=== PATIENT | male | born 1965 | race Caucasian/White ===

== ENCOUNTER → 2020-11-25 17:44 | Outpatient (CLI) | payer BC, SELFPAY | PROVIDERS: Visit Provider Internal Medicine Gastroenterology | DX: Z20.822 Contact with and (suspected) exposure to COVID-19 (principal) | CPT/HCPCS: U0003 ==

== ENCOUNTER 2020-11-27 11:35 | Day surgery (SDC) | payer BC, SELFPAY ==
[2020-11-25 09:12] VITALS: BMI 30.1
[2020-11-27] VITALS (8 sets, daily range): BP systolic 113–132; BP diastolic 61–79; PULSE 51–57; RESP 16–18; TEMP 36.1–36.4; O2SAT 97–100
--- NOTE | 2020-11-27 13:15 | HMH.ANESCL ---
[facility] Anesthesia Checklist - Patient Identification Patient Identification: Arm Band - Structural Data Admitted From: Home Planned Operative Procedure/s: Colonoscopy Consent for Planned Operative Procedure(s) Verified: Yes - NPO Status Verified Time NPO: 00:00 - Airway Assessment C-Spine Mobility Assessed: Yes TMJ Mobility Assessed: Yes Dentition: Good Dentition - Neurological Assessment Level of Consciousness: Awake Hx Seizures: No Numbness or tingling in extremities: No - Anesthesia Plan Anesthesia Risk discussed: Yes Anesthesia Plan: Verified ASA Class: II Anesthesia Type: MAC [facility] History I have reviewed the patient's past medical history: Yes Medical History: Denies:: Cancer, Diabetes Mellitus Type 1, Diabetes Mellitus Type 2, Internal Pacemaker, MRSA, Seizures *Have you ever received a pneumonia vaccine?: No *Have you received a flu vaccine this season?: No Anesthesia experience/problems:: None Other Surgeries: No: Pacemaker Amputation: No Fractures: No - *Social History Last grade of school completed: Advanced degree Smoking Status: Current every day smoker Tobacco Type: cigarettes # Packs/Day (cigarettes): 1 Alcohol Intake: current Alcohol Intake Frequency:: a few times a week Substance Use Type: denies use *Occupational Status:: employed Housing: house Household Members: spouse *Travel in the last 8 weeks: None Family Hx:: Unable to obtain
--- NOTE | 2020-11-27 13:52 | HMH.PROC ---
[facility] Procedure Note Procedure Note:: Colonoscopy Procedure Report: Colonoscopy with cold snare polypectomy Endoscopist: Jeremy Alcaraz II, MD Referring physician: Sachin Mascorro MD Date of Procedure: November 27, 2020 Equipment: Olympus 190 variable stiffness pediatric colonoscope Sedation: MAC sedation Indication: Mr. Camargo is a 54-year-old gentleman who is here for initial screening colonoscopy. He reports no abdominal pain, weight loss, change in his bowel habits or rectal bleeding. He reports no family history of colon cancer. His sister had thyroid cancer. His currently has stage IV colon cancer. Procedure: Prior to the procedure, a history and physical exam was performed, and patient's medications and allergies were reviewed. The risks, benefits and alternatives of the sedation and procedure were discussed with the patient. All questions were answered and informed consent was obtained. The patient was brought to the procedure room. Patient identification and proposed procedure were verified by the physician and the nurse. The patient was placed in a left lateral decubitus position and the scope was passed under direct vision. Throughout the procedure, the patient's blood pressure, pulse, and oxygen saturations were monitored continuously. The colonoscopy was accomplished without difficulty. The patient tolerated the procedure well. Findings: On digital rectal examination there was normal rectal tone. There were no external hemorrhoids. The prostate was 2+, smooth, soft, symmetric without nodules. The colonoscope was introduced through the anal canal to the rectum and advanced to the cecum. The ileocecal valve and appendiceal orifice were identified. The scope was advanced a short distance into the ileum which appeared grossly normal. The scope was then withdrawn into the colon. There were 3 colon polyps (transverse x1 (18 to 19 mm), sigmoid x1 (6 mm) and rectum x1 (5 mm)) which were all 3 removed via cold snare polypectomy. The remainder of the colonic mucosa was normal. Upon retroflexion within the rectum there were grade 1-2 internal hemorrhoids.The preparation was excellent throughout with [place] Preparation Score of 9. The cecal time was 15 minutes. Impression: 1. Large transverse colon polyp (18 to 19 mm) 2. 2 additional diminutive colon polyps (5 and 6 mm) 3. Grade 1-2 internal hemorrhoids Plan: The larger polyp is an advanced adenoma. I will discuss the findings (adenomatous polyps) and implication with patient and family. I would recommend surveillance colonoscopy again in 1 to 3 years based upon the adenomatous pathology and polyp size. I would encourage bulking fiber supplementation on a maintenance basis.
== END 2020-11-27 14:55 | disposition home or self-care (01) ==
LOC: OUTP 11:39
PROVIDERS: PCP Family Medicine; Visit Provider Internal Medicine Gastroenterology
PROC: 0DJD8ZZ Inspection of Lower Intestinal Tract, Via Natural or Artificial Opening Endoscopic (ICD-10-PCS; CPT 45378; principal; 2020-11-27 12:30)
DX: Z12.11 Encounter for screening for malignant neoplasm of colon (principal); K63.5 Polyp of colon; K64.0 First degree hemorrhoids; Z80.8 Family history of malignant neoplasm of other organs or systems; Z72.0 Tobacco use; F41.9 Anxiety disorder, unspecified; I10 Essential (primary) hypertension; Z79.899 Other long term (current) drug therapy
CPT/HCPCS: 45385

== ENCOUNTER → 2021-01-18 11:46 | Outpatient (CLI) | payer BC, SELFPAY | PROVIDERS: PCP Family Medicine; Visit Provider Nurse Practitioner | DX: Z20.822 Contact with and (suspected) exposure to COVID-19 (principal) | CPT/HCPCS: C9803; U0003; U0005 ==

== ENCOUNTER → 2021-03-16 13:19 | Outpatient (POV) | payer BC, SELFPAY | PROVIDERS: Visit Provider Dermatology | DX: Z00.00 Encounter for general adult medical examination without abnormal findings (principal) ==

== ENCOUNTER → 2021-05-11 13:12 | Outpatient (CLI) | payer BC, SELFPAY | PROVIDERS: PCP Family Medicine; Visit Provider Nurse Practitioner | DX: Z20.822 Contact with and (suspected) exposure to COVID-19 (principal) | CPT/HCPCS: C9803; U0003; U0005 ==

== ENCOUNTER → 2021-06-01 09:08 | Outpatient (CLI) | payer BC, SELFPAY ==
[2021-06-02 06:15] LABS: Covid-19 Nasal PCR Sendout Lex NOT DETECTED
== END ==
PROVIDERS: PCP Family Medicine; Visit Provider Nurse Practitioner
DX: Z20.822 Contact with and (suspected) exposure to COVID-19 (principal)
CPT/HCPCS: C9803; U0004; U0005

== ENCOUNTER → 2021-11-09 13:43 | Outpatient (CLI) | payer BC, SELFPAY ==
[2021-11-09 14:10] LABS: Basophils # 0.1 K/mm3 (0-0.2); Basophils % 1.1 % (0.1-2.0); Eosinophils # 0.4 K/mm3 (0.0-0.4); Hematocrit 52.2 % (42.0-52.0); Lymphocytes # 2.4 K/mm3 (0.7-4.5); Mean Corpuscular HGB Conc 32.5 g/dL (31.8-35.4); Mean Corpuscular Hemoglobin 30.6 pg (27.0-31.2); Mean Corpuscular Volume 94.2 fl (80-94); Mean Platelet Volume 7.6 fl (7.4-10.4); Monocytes # 0.5 K/mm3 (0.1-1.0); Monocytes % 5.2 % (1.7-9.3); Neutrophils # 6.3 K/mm3 (1.8-7.8); Neutrophils % 64.7 % (37.0-80.0); Platelet Count 303 K/mm3 (142-424); Red Blood Count 5.54 M/mm3 (4.60-6.20); Red Cell Distribution Width 13.9 % (11.5-17.5); White Blood Count 9.7 K/mm3 (4.8-10.8)
[2021-11-09 14:30] LABS: Alanine Aminotransferase 28 U/L (12-78); Albumin Level 4.3 g/dl (3.5-5.0); Albumin/Globulin Ratio 1.5 (1.1-1.8); Alkaline Phosphatase 74 U/L (38-126); Anion Gap 10.2 mEq/L (5-15); Aspartate Amino Transferase 30 U/L (17-59); Bilirubin,Total 0.2 mg/dl (0.2-1.3); Blood Urea Nitrogen 15 mg/dl (9-20); Calcium 9.6 mg/dl (8.4-10.2); Carbon Dioxide 30 mmol/L (22.0-30.0); Chloride 105 mmol/L (98-107); Chol/HDL Ratio 3.8 (1-3.5); Cholesterol 193 mg/dl (140-200); Estimated Glomerular Filt Rate 70 ml/min (>60); GFR (African American) 85 ML/MIN (>60); Globulin 2.9 g/dL (1.3-3.2); Glucose 109 mg/dl (74-100); HDL Cholesterol 51 mg/dl (40-60); Potassium 5.2 mmoL/L (3.5-5.1); Sodium 140 mmol/L (136-145); Total Protein,Serum 7.2 g/dl (6.3-8.2); Triglycerides 121 mg/dl (30-150); VLDL Cholesterol 24 mg/dL (0-40)
[2021-11-09 14:42] LABS: Direct LDL Cholesterol 117.61 mg/dL (100-129); Troponin I < 0.01 ng/ml (0.00-0.034)
[2021-11-09 15:00] LABS: Prostate Specific Ag Screen 2.1 ng/ml (0.0-4.0); Thyroid Stimulating Hormone 1.79 uIU/mL (0.465-4.68)
== END ==
PROVIDERS: PCP Nurse Practitioner Family; Visit Provider Nurse Practitioner Family
DX: I10 Essential (primary) hypertension (principal); R61 Generalized hyperhidrosis; R53.83 Other fatigue; Z12.5 Encounter for screening for malignant neoplasm of prostate
CPT/HCPCS: 36415; 80053; 80061; 84443; 84484; 85025; G0103

== ENCOUNTER → 2022-05-16 09:06 | Outpatient (CLI) | payer BC, SELFPAY ==
--- NOTE | 2022-05-16 09:15 | XR_ITS ---
FINAL REPORT CLINICAL HISTORY: right medial knee pain FINDINGS: AP and lateral views of the right knee were obtained. There is no prior exam for comparison. There is no acute fracture or dislocation. The joint space is preserved. Soft tissues are normal. IMPRESSION: No acute osseous abnormality of the right knee. Reviewed, Interpreted and Dictated by Pooja Ulrich MD Transcribed by Glenys Hodgson Authenticated and [facility]
== END ==
PROVIDERS: PCP Family Medicine; Visit Provider Nurse Practitioner Family
DX: M25.561 Pain in right knee (principal)
CPT/HCPCS: 73560

== ENCOUNTER → 2022-05-27 16:32 | Outpatient (CLI) | payer BC, SELFPAY ==
--- NOTE | 2022-05-27 16:36 | MR_ITS ---
PROCEDURE INFORMATION: Exam: MR Right Lower Extremity Joint Without Contrast, Knee Exam date and time: 05/27/2022 4:37 PM Age: 56 years old Clinical indication: Pain; Knee; Right; Additional info: Acute pain in right knee TECHNIQUE: Imaging protocol: Magnetic resonance imaging of the Right lower extremity joint without contrast. Exam focused on the knee. COMPARISON: CR XR KNEE RT 2V 05/16/2022 9:23 AM FINDINGS: Bones and cartilage: Moderate diffuse medial compartment chondromalacia. Focal high-grade chondral defects central lateral femoral condyle with otherwise mild diffuse lateral compartment chondromalacia. Multifocal high-grade chondral fissures are seen in the lateral patellofemoral compartment. Patella is minimally subluxed laterally with lateral tilt. Joint spaces: Moderate-size knee joint effusion with synovitis. Medial meniscus: Complex tear in the body/posterior horn of the medial meniscus involving the free edge with mild meniscal extrusion. Lateral meniscus: Lateral meniscus has degenerative free edge fraying in the body with mild extrusion. Anterior cruciate ligament: Unremarkable. No tear. Posterior cruciate ligament: Unremarkable. No tear. Medial capsule and supporting structures: Unremarkable. No tear. Lateral capsule and supporting structures: Unremarkable. No tear. Extensor mechanism of knee: Patellar tendinosis with distal tendinous laxity. Muscles: Unremarkable. Soft tissues: Unremarkable. IMPRESSION: 1. Complex tearing of the body/posterior horn of the medial meniscus free edge with mild extrusion. 2. Lateral meniscus degenerative free edge fraying in the body with mild extrusion. 3. Tricompartmental moderate osteoarthritis of the right knee greatest in the patellofemoral compartment. 4. Moderate-sized knee joint effusion with synovitis. 5. Patellar tendinosis.
== END ==
PROVIDERS: PCP Family Medicine; Visit Provider Nurse Practitioner Family
DX: M25.561 Pain in right knee (principal)
CPT/HCPCS: 73721

== ENCOUNTER 2023-01-11 10:31 | Day surgery (SDC) | payer BC, SELFPAY ==
[2022-12-12 10:01] VITALS: BMI 28.5
[2023-01-11 11:02] VITALS: BP 127/84; PULSE 68; RESP 16; TEMP 36.6; O2SAT 97
--- NOTE | 2023-01-11 11:26 | P.PNANES_ITS ---
[facility] Disclaimer: The information contained in this section may have been updated after the patient was seen, as this information can be updated by other users. Medical History Dyspnea on exertion History of asthma HTN (hypertension) Hyperlipidemia Sinus bradycardia Smoking greater than 30 pack years Surgical History History of colonoscopy History of removal of cyst Family History Other Black lung disease Diabetes Family history of dementia Family history of lymphoma Hypertension Social History Smoking Status: Current every day smoker tobacco type: cigarettes packs per day: 1 pack-years: 30 alcohol intake: current substance use type: denies use current occupational status: employed Travel in the last 8 weeks: None household members: family housing: house lives independently: Yes marital status: single education level: college service: No retirement: No 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 current occupational exposures/hazards: No caffeine: Yes special jesenia needs: No agree to transfusion: No do you feel safe at home: Yes victim of physical abuse: No victim of emotional abuse: No victim of sexual abuse: No would you like helpful sources: No [facility] Anesthesia Checklist Patient Identification Patient Identification: Arm Band Structural Data Admitted From: Home Planned Operative Procedure/s: Colonoscopy Consent for Planned Operative Procedure(s) Verified: Yes Verified Documents: Surgical Consent and History and Physical NPO Status Verified Time NPO: 00:00 Additional verifications Anesthesia Reactions: No Airway Assessment Mallampati Score:: Class II C-Spine Mobility Assessed: Yes TMJ Mobility Assessed: Yes Dentition: Good Dentition Neurological Assessment Level of Consciousness: Awake and Alert Anesthesia Plan Anesthesia Risk discussed: Yes Anesthesia Plan: Verified ASA Class: II Anesthesia Type: General
[2023-01-11 12:20] VITALS: O2SAT 98
--- NOTE | 2023-01-11 12:30 | EXP.ANES.CKL ---
[facility] Disclaimer: The information contained in this section may have been updated after the patient was seen, as this information can be updated by other users. Medical History Dyspnea on exertion History of asthma HTN (hypertension) Hyperlipidemia Sinus bradycardia Smoking greater than 30 pack years Surgical History History of colonoscopy History of removal of cyst Family History Other Black lung disease Diabetes Family history of dementia Family history of lymphoma Hypertension Social History Smoking Status: Current every day smoker tobacco type: cigarettes packs per day: 1 pack-years: 30 alcohol intake: current substance use type: denies use current occupational status: employed Travel in the last 8 weeks: None household members: family housing: house lives independently: Yes marital status: single education level: college service: No fdc: No 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 current occupational exposures/hazards: No caffeine: Yes special jesenia needs: No agree to transfusion: No do you feel safe at home: Yes victim of physical abuse: No victim of emotional abuse: No victim of sexual abuse: No would you like helpful sources: No [facility] Anesthesia Checklist Patient Identification Patient Identification: Verbal (Name & ) Structural Data Admitted From: Home Planned Operative Procedure/s: colonoscopy Consent for Planned Operative Procedure(s) Verified: Yes Additional verifications Anesthesia Reactions: No Airway Assessment Mallampati Score:: Class I C-Spine Mobility Assessed: Yes TMJ Mobility Assessed: Yes Dentition: Good Dentition Neurological Assessment Level of Consciousness: Awake, Alert and Appropriate Anesthesia Plan Anesthesia Risk discussed: Yes Anesthesia Plan: Verified ASA Class: II Anesthesia Type: MAC
--- NOTE | 2023-01-11 12:44 | HMH.SCOPE ---
Procedure: Date: 01/11/23 Patient Date of :: 1965 Procedure Performed:: Colonoscopy Indications:: The patient is a 57 year old who presents for surveillance colonoscopy. The patien jeanine a colonoscopy in 2020 with adenomatous polyps removed. The larged polyp was removed from the transverse colon. Performing Provider:: Gilbert Portillo MD Referring Provider:: ASH moseley Sedation:: See RN records Procedure:: After placing the patient in the left lateral decubitus position, the colonoscopy was gently inserted into the rectum and under direct visualization advanced to the cecum which was identified by transillumination in the right lower quadrant, identification of the ileocecal valve, appendiceal orifice, and cecal strap. Color, texture, mucosa, and anatomy of the colon were carefully examined with the scope. Preparation was good. There were areas of fair preparation and time spent cleansing mucosa to good preparation. Findings:: Anal canal: normal Rectum: normal Sigmoid colon: normal without polyps or inflammatory changes Descending colon: normal without polyps or inflammatory changes Splenic flexure: normal Transverse colon: normal without polyps or inflammatory changes Hepatic flexure: normal Ascending colon: normal without polyps or inflammatory changes Cecum: normal Terminal ileum: not visualized Impression: Normal appearing colon Recommendations:: Repeat colonoscopy in 3 years Complications:: none Estimated blood obtained (mL): 0 Colonoscopy Component Colonoscopy Component Was a colonoscopy performed during today's procedure?: Yes Recommended follow up colonoscopy of at least 10 years?: Yes
[2023-01-11 12:48] VITALS: BP 108/60; PULSE 63; RESP 17; TEMP 36.9; O2SAT 95
[2023-01-11 13:05] VITALS: BP 101/59; PULSE 58; RESP 16; O2SAT 95
[2023-01-11 13:15] VITALS: BP 115/65; PULSE 51; RESP 18; O2SAT 95
[2023-01-11 13:23] VITALS: BP 143/90; PULSE 56; RESP 17; O2SAT 97
== END 2023-01-11 13:31 | disposition home or self-care (01) ==
PROVIDERS: PCP Family Medicine; Visit Provider Internal Medicine
PROC: (CPT 45378; principal; 2023-01-11 11:30)
DX: Z12.11 Encounter for screening for malignant neoplasm of colon (principal); Z86.010 Personal history of colon polyps
CPT/HCPCS: 45378

== ENCOUNTER → 2023-01-27 13:02 | Outpatient (CLI) | payer BC, SELFPAY ==
--- NOTE | 2023-01-27 13:53 | PC.NURSE ---
PFT and 6 Minute Walk Test completed without incident. Albuterol 0.083% given via HHN, per written protocol, Pt tolerated tx well.
--- NOTE | 2023-01-27 14:10 | CT_ITS ---
FINAL REPORT TECHNIQUE: Thin section axial images were obtained through the lungs using a low-dose technique per lung cancer screening protocol. Reconstruction images were obtained using the axial data. Exam was performed using dose reduction technique. CLINICAL HISTORY: lung cancer screening 1ppd/ 30 years current smoker family history of lung ca COMPARISON: None FINDINGS: CTDLvol: 2.9 DLP: 116.98 Current smoker 30 pack year history Lungs: There is evidence of prior granulomatous disease. No acute pulmonary abnormality. No suspicious nodules. Lymph nodes: No thoracic lymphadenopathy. Mediastinum: Heart size is normal. Pleura/pericardium: No pleural or pericardial effusion. Other: There is a distended gallbladder with multiple gallstones. IMPRESSION: No suspicious pulmonary nodule or mass. Distended gallbladder with multiple gallstones is responsible for the S designation. Lung RADS: 1S Recommendation: 12-month follow-up LDCT Reviewed, Interpreted and Dictated by Pooja Ulrich MD Transcribed by Mariely Miramontes Authenticated and [facility]
== END ==
PROVIDERS: PCP Family Medicine; Visit Provider Internal Medicine Pulmonary Disease
DX: R06.09 Other forms of dyspnea (principal); F17.210 Nicotine dependence, cigarettes, uncomplicated
CPT/HCPCS: 71271; 94060; 94618; 94726; 94729

== ENCOUNTER 2024-06-28 07:14 | Outpatient (CLI) | payer BC, SELFPAY ==
--- NOTE | 2024-06-28 07:18 | US_ITS ---
FINAL REPORT TECHNIQUE: Ultrasound images of the right upper quadrant were obtained, specifically the gallbladder. CLINICAL HISTORY: UPPER ABD PAIN COMPARISON: None FINDINGS: There is evidence of cholelithiasis with a 14 mm stone in the proximal gallbladder. No gallbladder wall thickening. There is mild gallbladder distention up to 45 mm. There is no evidence of biliary ductal dilatation. Limited images of the liver parenchyma are normal in echogenicity. IMPRESSION: Solitary 14 mm proximal gallstone with mildly distended gallbladder. No surrounding fluid or wall thickening. Early/mild acute cholecystitis not excluded. HIDA scan may be considered. Reviewed, Interpreted and Dictated by Jostin Eubanks MD Transcribed by Sis Chandler Authenticated and [facility]
== END 2024-06-28 23:59 | disposition home or self-care (01) ==
PROVIDERS: PCP Family Medicine; Visit Provider Family Medicine
DX: R10.10 Upper abdominal pain, unspecified (principal)
CPT/HCPCS: 76705

== ENCOUNTER 2025-01-06 07:56 | Outpatient (CLI) | payer BC, SELFPAY ==
[2025-01-06 08:22] LABS: Hematocrit 51.6 % (42.0-52.0); Hemoglobin 17.3 g/dL (14.1-18.0); Immature Granulocytes % 0.4 %; Mean Corpuscular HGB Conc 33.5 g/dL (31.8-35.4); Mean Corpuscular Hemoglobin 31.1 pg (27.0-31.2); Mean Corpuscular Volume 92.8 fl (80-94); Nucleated Red Blood Cells % 0 %; Platelet Count 196 K/mm3 (142-424); Red Blood Count 5.56 M/mm3 (4.60-6.20); Red Cell Distribution Width-SD 43.4 fL; White Blood Count 9.0 K/mm3 (4.8-10.8)
[2025-01-06 08:32] LABS: Albumin Level 4.2 g/dl (3.5-5.0); Chloride 106 mmol/L (98-107); Potassium 3.8 mmoL/L (3.5-5.1); Sodium 141 mmol/L (136-145)
[2025-01-06 08:34] LABS: Bilirubin,Unconjugated 0.8 mg/dL (0.0-1.1); Blood Urea Nitrogen 19 mg/dl (9-20); Creatinine,Serum 1.10 mg/dl (0.66-1.25); Estimated Glomerular Filt Rate 69 ml/min (>60); GFR (African American) 83 ML/MIN (>60)
[2025-01-06 08:35] LABS: Alanine Aminotransferase 21 U/L (12-78); Alkaline Phosphatase 61 U/L (38-126); Anion Gap 8.8 mEq/L (5-15); Aspartate Amino Transferase 32 U/L (17-59); Bilirubin,Direct 0.1 mg/dl (0.0-0.4); Bilirubin,Indirect 0.8 mg/dL (0.0-0.9); Bilirubin,Total 0.9 mg/dl (0.2-1.3); Calcium 9.4 mg/dl (8.4-10.2); Carbon Dioxide 30 mmol/L (22.0-30.0); Cholesterol 132 mg/dl (140-200); Glucose 115 mg/dl (74-100); HDL Cholesterol 59 mg/dl (40-60); Magnesium 1.6 mg/dl (1.6-2.3); Total Protein,Serum 6.7 g/dl (6.3-8.2); Triglycerides 131 mg/dl (30-150)
[2025-01-06 09:05] LABS: Thyroid Stimulating Hormone 3.51 uIU/mL (0.465-4.68)
[2025-01-06 09:06] LABS: Free T4 (Free Thyroxine) 1.13 ng/dl (0.78-2.19)
== END 2025-01-06 23:59 | disposition home or self-care (01) ==
LOC: LAB 07:57
PROVIDERS: PCP Family Medicine; Visit Provider Physician Assistant
DX: E78.5 Hyperlipidemia, unspecified (principal); I10 Essential (primary) hypertension
CPT/HCPCS: 36415; 80048; 80061; 80076; 83735; 84439; 84443; 85025

== ENCOUNTER 2025-04-01 11:13 | Outpatient (CLI) | payer BC, SELFPAY ==
[2025-04-01 11:15] VITALS: BP 123/76; BP 160/90; PULSE 58; RESP 14
--- NOTE | 2025-04-01 11:30 | CA_ITS ---
APPROVED REPORT Exam: Exercise Treadmill Technologist: Lorna Mares Ht: 5 ft 10 in Wt: 207 lbs BSA: 2.12 m2 HR: 58 bpm BP: 123/76 mmHg Indications: Hypertension, Smoker, Coronary calcification on CT images. Stress Test Details Test: Exercise stress testing was performed using a Federico protocol. HR Resting HR: 58 bpm Max Heart Rate (APMHR): 163.617109 bpm Max HR Achieved: 101 bpm Target HR (85% APMHR): 138.643832 bpm % of APMHR: 61.96 Recovery HR: 70 bpm BP Resting BP: 123.0/76.0 mmHg Max BP: 160.0/90.0 mmHg Recovery BP: 124.0/73.0 mmHg ECG Stress ECG Conclusion Took Beta Kenneth this am. Requested to stop test at 9 minutes due to leg fatigue. Symptoms: Leg fatigue Arrhythmias/Ectopy: ST-T Changes: Less than 0.[address] segment changes. Electronically signed by : Pam Daniel MD 04/01/2025 12:47:54
== END 2025-04-01 23:59 | disposition home or self-care (01) ==
LOC: RT 11:13
PROVIDERS: PCP Family Medicine; Visit Provider Physician Assistant
DX: I25.10 Atherosclerotic heart disease of native coronary artery without angina pectoris (principal); I10 Essential (primary) hypertension; F17.200 Nicotine dependence, unspecified, uncomplicated
CPT/HCPCS: 93017; 93018